=== PATIENT | female | born 1980 | race Caucasian/White ===

== ENCOUNTER 2018-03-12 13:45 | Emergency (ER) | payer MEDICAID, OTHER ==
[2018-03-12] MEDS: HYDROCODONE/APAP (5/325) TAB PO (18:18)
[2018-03-12] MEDS: KETOROLAC 60 MG INJ IM (18:19)
== END 2018-03-12 19:02 | disposition home or self-care (01) ==
LOC: FTE 13:45
DX: M25.461 Effusion, right knee (principal)
CPT/HCPCS: 29505; 73562; 96372; 99284-25

== ENCOUNTER 2018-06-08 13:38 | Emergency (ER) | payer OTHER, MEDICAID ==
[2018-06-08 16:17] LABS: URINE BLOOD (Dip) POC 2+ (NEGATIVE); URINE GLUCOSE (Dip) POC Negative (NEGATIVE); URINE KETONES (Dip) POC Negative (NEGATIVE); URINE LEUKOCYTE EST (Dip) POC Trace (NEGATIVE); URINE NITRITE (Dip) POC Negative (NEGATIVE); URINE TOTAL PROTEIN POC Negative (NEGATIVE)
[2018-06-08 16:24] LABS: ADD MAN DIFF? NO
[2018-06-08] MEDS: KETOROLAC 30 MG INJ IM (16:25)
[2018-06-08 16:28] LABS: BASOPHILS % 0.6 % (0.0-2.0); EOSINOPHILS # 0.1 10^3/ul (0.0-0.5); EOSINOPHILS % 2.1 % (0.0-7.0); HEMATOCRIT 33.9 % (37.0-47.0); HEMOGLOBIN 10.5 g/dl (12.0-16.0); LYMPHOCYTES # 2.8 10^3/ul (0.8-2.9); LYMPHOCYTES % 44.7 % (15.0-51.0); MEAN CORPUSCULAR HEMOGLOBIN 25.2 pg (29.0-33.0); MEAN CORPUSCULAR VOLUME 81.5 fl (82.0-101.0); MEAN PLATELET VOLUME 11.7 fl (7.4-10.4); MONOCYTE # 0.5 10^3/ul (0.3-0.9); MONOCYTES % 8.7 % (0.0-11.0); NEUTROPHIL # 2.7 10^3/ul (1.6-7.5); NEUTROPHILS % 43.7 % (39.0-77.0); PLATELET COUNT 344 10^3/UL (140-415); RED BLOOD COUNT 4.16 10^6/ul (4.20-5.40); RED CELL DISTRIBUTION WIDTH 16.8 % (11.5-14.5)
[2018-06-08 16:28] LABS: WHITE BLOOD COUNT 6.2 10^3/ul (4.8-10.8)
== END 2018-06-08 17:35 | disposition home or self-care (01) ==
LOC: FTE 13:38
DX: D64.9 Anemia, unspecified (principal); R51 Headache; M54.5 Low back pain
CPT/HCPCS: 81003; 81025; 85025; 93005; 96372; 99284-25

== ENCOUNTER 2018-09-07 12:55 | Emergency (ER) | payer OTHER ==
[2018-09-07 13:46] LABS: ADD MAN DIFF? NO
[2018-09-07 13:48] LABS: WHITE BLOOD COUNT 5.8 10^3/ul (4.8-10.8)
[2018-09-07 13:48] LABS: BASOPHILS % 0.5 % (0.0-2.0); EOSINOPHILS # 0.2 10^3/ul (0.0-0.5); EOSINOPHILS % 3.8 % (0.0-7.0); HEMATOCRIT 30.5 % (37.0-47.0); HEMOGLOBIN 9.5 g/dl (12.0-16.0); LYMPHOCYTES # 2.4 10^3/ul (0.8-2.9); LYMPHOCYTES % 41.3 % (15.0-51.0); MEAN CORPUSCULAR HEMOGLOBIN 25.6 pg (29.0-33.0); MEAN CORPUSCULAR HGB CONC 31.1 g/dl (32.0-37.0); MEAN CORPUSCULAR VOLUME 82.2 fl (82.0-101.0); MEAN PLATELET VOLUME 10.4 fl (7.4-10.4); MONOCYTE # 0.6 10^3/ul (0.3-0.9); MONOCYTES % 9.4 % (0.0-11.0); NEUTROPHIL # 2.6 10^3/ul (1.6-7.5); NEUTROPHILS % 44.8 % (39.0-77.0); PLATELET COUNT 328 10^3/UL (140-415); RED BLOOD COUNT 3.71 10^6/ul (4.20-5.40); RED CELL DISTRIBUTION WIDTH 16.2 % (11.5-14.5)
[2018-09-07 14:10] LABS: ANION GAP 7 (5-13); BLOOD UREA NITROGEN 8 mg/dl (7-20); CALCIUM 8.3 mg/dl (8.4-10.2); CARBON DIOXIDE 25 mmol/L (21-31); CHLORIDE 109 mmol/L (97-110); CREATININE 0.44 mg/dl (0.44-1.00); GLUCOSE 89 mg/dl (70-220); POTASSIUM 3.7 mmol/L (3.5-5.1); SODIUM 141 mmol/L (135-144)
[2018-09-07] MEDS: MECLIZINE 12.5 MG TAB PO (14:59)
== END 2018-09-07 15:29 | disposition home or self-care (01) ==
LOC: E/R 12:55
DX: R00.2 Palpitations (principal); R42 Dizziness and giddiness; D64.9 Anemia, unspecified
CPT/HCPCS: 80048; 85025; 93005; 99284-25

== ENCOUNTER 2019-04-30 12:55 | Emergency (ER) | payer OTHER ==
[2019-04-30] MEDS: KETOROLAC 30 MG INJ IV (13:51)
[2019-04-30 14:16] LABS: TROPONIN-I < 0.012 ng/ml (0.000-0.120)
== END 2019-04-30 16:53 | disposition home or self-care (01) ==
LOC: E/R 12:55
DX: R07.89 Other chest pain (principal)
CPT/HCPCS: 36415; 71045; 81025; 84484; 93005; 96372; 99285-25